=== PATIENT | female | born 1955 | race Caucasian/White ===

== ENCOUNTER 2018-08-18 13:25 | Outpatient (CLI) | payer BC | END 2018-08-18 23:59 | disposition home or self-care (01) | LOC: RAD 13:25 | PROVIDERS: ATTEND Family Medicine | DX: R13.12 Dysphagia, oropharyngeal phase (principal); R47.1 Dysarthria and anarthria; K21.9 Gastro-esophageal reflux disease without esophagitis | CPT/HCPCS: 74230 ==

== ENCOUNTER 2023-12-21 05:57 | Day surgery (SDC) | payer MEDICARE ==
[2023-12-14 12:13] LABS: BASOPHILS % (AUTO) 0.4 % (0-1); EOSINOPHILS % (AUTO) 0.5 % (0-6); LYMPHOCYTES # (AUTO) 2.2 X10'3 (1.1-4.8); LYMPHOCYTES % (AUTO) 28.2 % (21-51); MEAN CORPUSCULAR HGB CONC 33.1 g/dL (33.0-36.5); MEAN CORPUSCULAR VOLUME 93.6 FL (78-98); MEAN PLATELET VOLUME 7.6 FL (7.4-10.4); MONOCYTES # (AUTO) 0.8 X10'3 (0-0.9); MONOCYTES % (AUTO) 10.4 % (2-12); NEUTROPHILS # (AUTO) 4.6 X10'3 (1.8-7.7); NEUTROPHILS % (AUTO) 60.5 % (42-75); PRE OP HEMATOCRIT 44.3 % (35.0-45.0); PRE OP HEMOGLOBIN 14.6 g/dL (12.0-16.0); PRE OP PLATELET COUNT 265 X10'3 (140-440); PRE OP WHITE BLOOD COUNT 7.7 10'3 (4.8-10.8); RED BLOOD COUNT 4.73 X10'6 (4.20-5.60)
[2023-12-14 12:27] LABS: ALKALINE PHOSPHATASE 50 IU/L (46-116); BLOOD UREA NITROGEN 17 MG/DL (7-18); BUN/CREATININE RATIO 18.3 (10.0-20.0); CALCIUM 9.9 MG/DL (8.5-10.1); CHLORIDE 102 MMOL/L (99-107); CREATININE 0.93 MG/DL (0.40-0.90); PRE OP ALT 40 U/L (30-65); PRE OP ANION GAP 8 (8-16); PRE OP AST 18 U/L (10-37); PRE OP BILIRUB, TOTAL 0.6 MG/DL (0.0-1.0); PRE OP GLUCOSE 96 MG/DL (70-104); PRE OP SODIUM 140 MMOL/L (135-145); TOTAL CARBON DIOXIDE 30.3 MMOL/L (24-32); eGFR 60 ML/MIN
[~2023-12-21] VITALS: Ht 170.2 cm; Wt 82.6 kg
[2023-12-21] VITALS (7 sets, daily range): BP systolic 134–150; BP diastolic 72–78; PULSE 61–72; RESP 12–16; TEMP 98.4; O2SAT 94–100
[2023-12-21] MEDS: cefazolin 2gm/D5W 100mL 100 ML IV ONE (05:30)
[~2023-12-21 05:57] MED LIST: ACETAMINOPHEN PO; AMIT25TA9 PO; CALC1TAB2 PO; CHOL200074 PO; CoQ10 PO; DESV100T16 PO; DIAZ5TAB5 PO; GABA300C PO; HYDR50TA65 PO; IBUPROFEN PO; LEVO88TA7 PO; LIVER HEALTH PO; METH-798 PO; MONT-40 PO; OMEGA 3 FISH OIL PO; PANT40TA54 PO; SIMV-42 PO; TRAZ-251 PO
[2023-12-21] MEDS: famotidine 20mg tablet PO ONE (06:43)
[2023-12-21] MEDS: ringers solution, lacted 1,000 ML IV SCH (06:43)
[2023-12-21] MEDS: BUPIVAcaine/PF 2.5mg/ml (0.25%) 10ml vial ONE (07:34)
[2023-12-21] MEDS ORDERED: fentaNYL/PF 50MCG/1 ML 2ML syringe ONE (07:47)
[2023-12-21] MEDS ORDERED: midazolam 1 mg/ML 2ml injection ONE (07:49)
[2023-12-21] MEDS ORDERED: BUPIVAcaine/PF 2.5mg/ml (0.25%) 10ml vial ONE (08:01)
[2023-12-21] MEDS ORDERED: ondansetron/PF 4mg/2ml inj IV PRN (08:35)
[2023-12-21] MEDS ORDERED: ringers solution, lacted 1,000 ML IV SCH (08:35)
[2023-12-21] MEDS ORDERED: morphine 2 MG/ML inj. syringe IV PRN (08:35)
[2023-12-21] MEDS ORDERED: morphine 4 MG/ML inj SYRINge IV PRN (08:35)
[2023-12-21] MEDS ORDERED: meperidine/PF 25mg/ml syringe IV PRN ×3 (08:35)
[2023-12-21] MEDS ORDERED: proCHLORperazine 10 MG/2 ml inj IV PRN (08:35)
[2023-12-21] MEDS ORDERED: LIDOcaine 0.5% (5mg/ml) 50ml vial ONE (08:37)
[2023-12-21] MEDS ORDERED: propofol inj 20 ML IV ONE (08:37)
== END 2023-12-21 09:36 | disposition home or self-care (01) ==
LOC: PAS 05:57
PROVIDERS: ATTEND Orthopaedic Surgery Hand Surgery
DX: M18.11 Unilateral primary osteoarthritis of first carpometacarpal joint, right hand (principal); E03.9 Hypothyroidism, unspecified; E78.5 Hyperlipidemia, unspecified; K21.9 Gastro-esophageal reflux disease without esophagitis; J45.909 Unspecified asthma, uncomplicated; F41.9 Anxiety disorder, unspecified; F32.A Depression, unspecified; Z79.890 Hormone replacement therapy; Z79.891 Long term (current) use of opiate analgesic; Z79.899 Other long term (current) drug therapy; Z90.49 Acquired absence of other specified parts of digestive tract; Z98.890 Other specified postprocedural states; Z88.2 Allergy status to sulfonamides; Z88.8 Allergy status to other drugs, medicaments and biological substances
CPT/HCPCS: 25312; 25447; 36415; 80053; 82948; 85025; 93005; A4215; A4565; A4618; A6449; A7000; J0690; J2001; J2250; J2704; J3010; J3490; J7030; J7120; Z7506; Z7508; Z7512; Z7610